=== PATIENT | female | born 1975 | race Hispanic/Latino ===

== ENCOUNTER 2017-11-27 11:18 | Day surgery (SDC) | payer MEDICARE ==
[~2017-11-27 11:18] MED LIST: ACET-66 PO; AMLO10TA2 PO; CARV6.25 PO; CLON0.1T PO; DOCU100C33 PO; GREE1CAP PO; INSU100V3 SQ; LISI40TA4 PO; METO5TAB2 PO; NPH,100V SQ; PANT40TA25 PO; PREG25 PO; RIFA550T PO; SERT25TA5 PO; SEVE800T7 PO; TRAM50TA4 PO
[2017-11-27 12:19] LABS: BASOPHILS % (AUTO) 0.5 % (0.0-5.0); HEMATOCRIT 24.7 % (36-48); MEAN CORPUSCULAR HEMOGLOBIN 29.1 pg (27.0-33.0); MEAN CORPUSCULAR HGB CONC 33.6 g/dL (32.0-36.0); MEAN CORPUSCULAR VOLUME 86.4 fL (79-99); MONOCYTES % (AUTO) 7.7 % (3.0-13.0); NEUTROPHILS % (AUTO) 75.8 % (40.0-77.0); NUCLEATED RED BLOOD CELLS 0.1 % (0.0-0.19); PLATELET COUNT (AUTO) 143 K/uL (130-400); RED BLOOD CELL COUNT(AUTO) 2.86 MIL/uL (4.00-5.50); RED CELL DISTRIBUTION WIDTH 17.7 % (11.0-15.5); WHITE BLOOD COUNT (AUTO) 5.3 K/uL (4.8-10.8)
[2017-11-27 12:29] LABS: INR 1.02 (0.85-1.15); PARTIAL THROMBOPLASTIN TIME 25.9 SEC (26.3-35.5); PROTHROMBIN TIME 10.7 SEC (9.6-11.6)
[2017-11-27 12:37] LABS: POTASSIUM 5.2 mmol/L (3.5-5.1)
[2017-11-27] MEDS ORDERED: ISOVUE-300 100 ML VIAL IV ONE (13:49)
[2017-11-27] MEDS ORDERED: ALTEPLASE 2 MG/2 ML IVCATH ONE (13:53)
[2017-11-27] MEDS ORDERED: LIDOCAINE HCL 2% 20ML ONE (13:55)
[2017-11-27] MEDS ORDERED: HEPARIN SODIUM 1000UNIT/ML 10ML VIAL ONE (13:55)
[2017-11-27] MEDS ORDERED: SODIUM BICARB 50MEQ 50ML VIAL ONE (13:55)
[2017-11-27] MEDS ORDERED: SODIUM CHLORIDE 0.9% 1000ML 1,000 ML IV ONE (14:17)
[2017-11-27] MEDS ORDERED: FENTANYL CITRATE PF 50 MCG/1 ML 2ML VIAL ONE (14:49)
[2017-11-27 15:49] VITALS: BP 180/81
[2017-11-27 16:10] VITALS: BP 181/73
[2017-11-27 16:25] VITALS: BP 179/81
[2017-11-27 16:40] VITALS: BP 174/79
[2017-11-27 16:55] VITALS: BP 174/77
== END 2017-11-27 17:20 | disposition home or self-care (01) ==
LOC: EDH 11:18 → DAH 11:19
PROVIDERS: ATTEND Internal Medicine Nephrology
DX: T82.868A Thrombosis due to vascular prosthetic devices, implants and grafts, initial encounter (principal); E11.9 Type 2 diabetes mellitus without complications; R10.9 Unspecified abdominal pain
CPT/HCPCS: 36415; 36906; 80048; 82948; 85025; 85610; 85730; C1725 ×4; C1769 ×3; C1874; C1894 ×4; J1644 ×2; J2997; J3010; J3490 ×2; J7030; Q9967

== ENCOUNTER 2018-01-05 15:00 | Emergency (ER) | payer MEDICARE ==
[2018-01-05 15:56] LABS: BASOPHILS % (AUTO) 0.5 % (0.0-5.0); EOSINOPHILS % (AUTO) 0.1 % (0.0-8.0); LYMPHOCYTES % (AUTO) 14.1 % (21.0-51.0); MEAN CORPUSCULAR HEMOGLOBIN 31.6 pg (27.0-33.0); MEAN CORPUSCULAR HGB CONC 35.1 g/dL (32.0-36.0); MEAN CORPUSCULAR VOLUME 90.2 fL (79-99); NEUTROPHILS % (AUTO) 78.3 % (40.0-77.0); PLATELET COUNT (AUTO) 186 K/uL (130-400); RED BLOOD CELL COUNT(AUTO) 2.88 MIL/uL (4.00-5.50); RED CELL DISTRIBUTION WIDTH 17.4 % (11.0-15.5); WHITE BLOOD COUNT (AUTO) 7.5 K/uL (4.8-10.8)
[2018-01-05 16:10] LABS: ALBUMIN 3.1 g/dL (3.5-5.0); BILIRUBIN,TOTAL 0.3 mg/dL (0.2-1.0); POTASSIUM 5.2 mmol/L (3.5-5.1); TOTAL PROTEIN, SERUM 7.6 g/dL (6.0-8.3)
[2018-01-05 16:11] LABS: CREATININE 7.9 mg/dL (0.5-1.5)
[2018-01-05 16:19] LABS: PARTIAL THROMBOPLASTIN TIME 26.5 SEC (26.3-35.5); PROTHROMBIN TIME 10.5 SEC (9.6-11.6)
== END 2018-01-05 18:34 | disposition home or self-care (01) ==
LOC: EDH 15:00
DX: R18.8 Other ascites (principal); I12.0 Hypertensive chronic kidney disease with stage 5 chronic kidney disease or end stage renal disease; E11.22 Type 2 diabetes mellitus with diabetic chronic kidney disease; N18.6 End stage renal disease; Z99.2 Dependence on renal dialysis; Z90.49 Acquired absence of other specified parts of digestive tract; Z90.710 Acquired absence of both cervix and uterus; Z88.2 Allergy status to sulfonamides; Z88.0 Allergy status to penicillin; Z88.5 Allergy status to narcotic agent; Z88.6 Allergy status to analgesic agent
CPT/HCPCS: 36415; 49083; 80053; 85025; 85610; 85730

== ENCOUNTER 2018-02-19 10:14 | Inpatient (IN) | payer MEDICARE ==
[~2018-02-19] VITALS: Ht 165.1 cm; Wt 70.9 kg
[2018-02-19] MEDS ORDERED: ONDANSETRON HCL MDV 20ML 2 MG/ML VIAL ONE (10:35)
[2018-02-19 10:51] LABS: BASOPHILS % (AUTO) 0.4 % (0.0-5.0); HEMATOCRIT 30.1 % (36-48); LYMPHOCYTES % (AUTO) 10.6 % (21.0-51.0); MEAN CORPUSCULAR HEMOGLOBIN 31.7 pg (27.0-33.0); MEAN CORPUSCULAR HGB CONC 34.4 g/dL (32.0-36.0); MEAN CORPUSCULAR VOLUME 92.3 fL (79-99); MONOCYTES % (AUTO) 6.3 % (3.0-13.0); NEUTROPHILS % (AUTO) 82.7 % (40.0-77.0); NUCLEATED RED BLOOD CELLS 0.1 % (0.0-0.19); PLATELET COUNT (AUTO) 122 K/uL (130-400); RED BLOOD CELL COUNT(AUTO) 3.26 MIL/uL (4.00-5.50); RED CELL DISTRIBUTION WIDTH 19.6 % (11.0-15.5); WHITE BLOOD COUNT (AUTO) 7.4 K/uL (4.8-10.8)
[2018-02-19] MEDS ORDERED: HYDROMORPHONE 1 MG/1 ML AMP IVP ONE (11:11)
[2018-02-19 11:16] LABS: ALBUMIN 3.6 g/dL (3.5-5.0); BILIRUBIN,TOTAL 0.6 mg/dL (0.2-1.0); TOTAL PROTEIN, SERUM 7.8 g/dL (6.0-8.3)
[2018-02-19 11:27] LABS: POTASSIUM 6.5 mmol/L (3.5-5.1)
[2018-02-19 11:28] LABS: CREATININE 8.1 mg/dL (0.5-1.5)
[2018-02-19] MEDS ORDERED: ALBUTEROL SULFATE 0.083% 2.5 MG/3 ML INH IH ONE (12:17)
[2018-02-19] MEDS ORDERED: CALCIUM GLUCONATE 1 GM/10 ML VIAL IV ONE (12:25)
[2018-02-19] MEDS ORDERED: SODIUM BICARB 50MEQ 50ML VIAL ONE (12:25)
[2018-02-19] MEDS ORDERED: INSULIN HUMULIN R 100 UNIT/ML 3ML ONE (12:26)
[2018-02-19] MEDS ORDERED: DEXTROSE 50%-WATER 50 ML DISP.SYRIN IV ONE (12:27)
[2018-02-19] MEDS ORDERED: SODIUM POLYSTYRENE SULFONATE 15 GM/60 ML ML ONE (12:54)
[2018-02-19 14:29] VITALS: BP 152/84
[2018-02-19 16:15] VITALS: BP 200/108
[2018-02-19] MEDS: INSULIN HUMULIN R 100 UNIT/ML 3ML SQ SCH ×2 (16:30→21:00)
[2018-02-19] MEDS ORDERED: ONDANSETRON HCL MDV 20ML 2 MG/ML VIAL IVP PRN (16:30)
[2018-02-19] MEDS ORDERED: ACETAMINOPHEN 325 MG TAB PO PRN (16:30)
[2018-02-19] MEDS ORDERED: ALBUMIN (HUMAN) 25% 100 ML IV PRN (17:00)
[2018-02-19] MEDS ORDERED: SODIUM CHLORIDE 0.9% 1000ML 1,000 ML IV PRN (17:00)
[2018-02-19] MEDS ORDERED: 0.9% SODIUM CHLORIDE 250 ML IV BAG IV PRN (17:00)
[2018-02-19] MEDS ORDERED: HEPARIN SODIUM 5000UNIT/ML 1ML VIAL IJ PRN (17:00)
[2018-02-19] MEDS: TRAMADOL HCL 50 MG TABLET PO PRN (17:22)
[2018-02-19 19:23] VITALS: BP 223/131
[2018-02-19] MEDS ORDERED: TRAMADOL HCL 50 MG TABLET PO ONE (21:00)
[2018-02-19] MEDS: HYDRALAZINE HCL 20 MG/ML VIAL IV PRN (22:12)
[2018-02-19] MEDS: ONDANSETRON HCL MDV 20ML 2 MG/ML VIAL IVP PRN (22:12)
[2018-02-19 23:21] VITALS: BP 211/101
[2018-02-20] MEDS: ONDANSETRON HCL MDV 20ML 2 MG/ML VIAL IVP PRN ×3 (02:11→10:59)
[2018-02-20] MEDS: HYDRALAZINE HCL 20 MG/ML VIAL IV PRN ×2 (02:17→06:15)
[2018-02-20] MEDS: TRAMADOL HCL 50 MG TABLET PO PRN (03:46)
[2018-02-20 03:55] LABS: BASOPHILS % (AUTO) 0.5 % (0.0-5.0); HEMATOCRIT 34.3 % (36-48); LYMPHOCYTES % (AUTO) 5.1 % (21.0-51.0); MEAN CORPUSCULAR HEMOGLOBIN 30.7 pg (27.0-33.0); MEAN CORPUSCULAR HGB CONC 33.8 g/dL (32.0-36.0); MEAN CORPUSCULAR VOLUME 90.9 fL (79-99); MONOCYTES % (AUTO) 2.8 % (3.0-13.0); NEUTROPHILS % (AUTO) 91.6 % (40.0-77.0); NUCLEATED RED BLOOD CELLS 0.1 % (0.0-0.19); PLATELET COUNT (AUTO) 169 K/uL (130-400); RED BLOOD CELL COUNT(AUTO) 3.77 MIL/uL (4.00-5.50); WHITE BLOOD COUNT (AUTO) 8.8 K/uL (4.8-10.8)
[2018-02-20 04:05] LABS: INR 1.08 (0.85-1.15); PARTIAL THROMBOPLASTIN TIME 24.3 SEC (26.3-35.5); PROTHROMBIN TIME 11.3 SEC (9.6-11.6)
[2018-02-20 04:08] LABS: ALBUMIN 3.5 g/dL (3.5-5.0); BILIRUBIN,DIRECT 0.1 mg/dL (0.0-0.3); BILIRUBIN,TOTAL 0.9 mg/dL (0.2-1.0); CREATININE 6.3 mg/dL (0.5-1.5); POTASSIUM 5.7 mmol/L (3.5-5.1); TOTAL PROTEIN, SERUM 8.3 g/dL (6.0-8.3)
[2018-02-20 04:22] VITALS: BP 185/81
[2018-02-20] MEDS: INSULIN HUMULIN R 100 UNIT/ML 3ML SQ SCH ×4 (06:22→20:30)
[2018-02-20 07:00] VITALS: BP 180/93
[2018-02-20] MEDS: PANTOPRAZOLE SODIUM 40 MG TABLET.DR PO SCH (07:30)
[2018-02-20] MEDS: LIDOCAINE HCL 1% 20 ML VIAL INJ SCH ×2 (09:00→09:15)
[2018-02-20] MEDS ORDERED: ACETAMINOPHEN EXTRA STRENGTH 500 MG TABLET PO PRN (09:15)
[2018-02-20] MEDS ORDERED: DOCUSATE SODIUM 100 MG CAP PO PRN (09:15)
[2018-02-20] MEDS ORDERED: TRAMADOL HCL 50 MG TABLET PO PRN (09:15)
[2018-02-20] MEDS: METOCLOPRAMIDE 5 MG TABLET PO SCH ×2 (10:58→16:16)
[2018-02-20] MEDS: TRAMADOL HCL 50 MG TABLET PO SCH ×3 (10:58→22:18)
[2018-02-20] MEDS: CLONIDINE HCL 0.1 MG TABLET PO SCH ×2 (10:59→16:16)
[2018-02-20 11:00] VITALS: BP 191/96
[2018-02-20] MEDS: SEVELAMER HCL 800 MG TABLET PO SCH ×2 (12:00→16:16)
[2018-02-20] MEDS ORDERED: DIPHENHYDRAMINE HCL 25 MG CAPSULE PO PRN (13:30)
[2018-02-20] MEDS ORDERED: HYDROMORPHONE HCL 0.5 MG/0.5 ML ML IVP PRN (13:30)
[2018-02-20 16:00] VITALS: BP 200/95
[2018-02-20 19:16] VITALS: BP 190/97
[2018-02-20] MEDS: AMLODIPINE BESYLATE 5 MG TAB PO SCH (20:21)
[2018-02-20] MEDS: CARVEDILOL 6.25 MG TABLET PO SCH (20:21)
[2018-02-20] MEDS: SERTRALINE HCL 50 MG TABLET PO SCH (20:21)
[2018-02-20] MEDS: LISINOPRIL 40 MG TABLET PO SCH (20:22)
[2018-02-20] MEDS ORDERED: SODIUM POLYSTYRENE SULFONATE 15 GM/60 ML ML PO SCH (21:00)
[2018-02-20 23:04] VITALS: BP 136/76
[2018-02-21] VITALS (8 sets, daily range): BP systolic 89–189; BP diastolic 50–91
[2018-02-21] MEDS: CLONIDINE HCL 0.1 MG TABLET PO SCH ×3 (00:55→16:50)
[2018-02-21] MEDS: TRAMADOL HCL 50 MG TABLET PO SCH ×4 (03:13→20:53)
[2018-02-21 03:40] LABS: HEMATOCRIT 31.7 % (36-48); MEAN CORPUSCULAR HEMOGLOBIN 31.6 pg (27.0-33.0); MEAN CORPUSCULAR HGB CONC 33.9 g/dL (32.0-36.0); MEAN CORPUSCULAR VOLUME 93.1 fL (79-99); NUCLEATED RED BLOOD CELLS 0.1 % (0.0-0.19); PLATELET COUNT (AUTO) 120 K/uL (130-400); RED CELL DISTRIBUTION WIDTH 20.4 % (11.0-15.5); WHITE BLOOD COUNT (AUTO) 7.8 K/uL (4.8-10.8)
[2018-02-21 04:00] LABS: CREATININE 8.5 mg/dL (0.5-1.5)
[2018-02-21] MEDS: INSULIN HUMULIN R 100 UNIT/ML 3ML SQ SCH ×4 (05:56→20:58)
[2018-02-21] MEDS: PANTOPRAZOLE SODIUM 40 MG TABLET.DR PO SCH ×2 (06:42)
[2018-02-21] MEDS: SEVELAMER HCL 800 MG TABLET PO SCH ×3 (08:00→16:49)
[2018-02-21] MEDS: LIDOCAINE HCL 1% 20 ML VIAL INJ SCH ×2 (09:00→09:15)
[2018-02-21] MEDS: CARVEDILOL 6.25 MG TABLET PO SCH ×2 (09:34→20:52)
[2018-02-21] MEDS: METOCLOPRAMIDE 5 MG TABLET PO SCH ×3 (09:34→16:49)
[2018-02-21] MEDS: AMLODIPINE BESYLATE 5 MG TAB PO SCH (20:52)
[2018-02-21] MEDS: LISINOPRIL 40 MG TABLET PO SCH (20:52)
[2018-02-21] MEDS: SERTRALINE HCL 50 MG TABLET PO SCH (20:53)
[2018-02-22] MEDS: CLONIDINE HCL 0.1 MG TABLET PO SCH ×2 (00:27→07:25)
[2018-02-22 03:11] VITALS: BP 139/73
[2018-02-22] MEDS: TRAMADOL HCL 50 MG TABLET PO SCH ×2 (03:28→07:25)
[2018-02-22 04:03] LABS: HEMATOCRIT 32.4 % (36-48); MEAN CORPUSCULAR HEMOGLOBIN 30.5 pg (27.0-33.0); MEAN CORPUSCULAR VOLUME 92.3 fL (79-99); PLATELET COUNT (AUTO) 111 K/uL (130-400); RED BLOOD CELL COUNT(AUTO) 3.51 MIL/uL (4.00-5.50); RED CELL DISTRIBUTION WIDTH 19.4 % (11.0-15.5); WHITE BLOOD COUNT (AUTO) 6.4 K/uL (4.8-10.8)
[2018-02-22 04:34] LABS: CREATININE 6.5 mg/dL (0.5-1.5); PHOSPHORUS 6.2 mg/dL (2.5-4.9); POTASSIUM 3.7 mmol/L (3.5-5.1)
[2018-02-22] MEDS: INSULIN HUMULIN R 100 UNIT/ML 3ML SQ SCH ×2 (05:41→11:06)
[2018-02-22] MEDS: PANTOPRAZOLE SODIUM 40 MG TABLET.DR PO SCH ×2 (06:57)
[2018-02-22] MEDS: METOCLOPRAMIDE 5 MG TABLET PO SCH ×2 (06:58→11:23)
[2018-02-22 07:00] VITALS: BP 171/72
[2018-02-22] MEDS: LIDOCAINE HCL 1% 20 ML VIAL INJ SCH ×2 (07:02)
[2018-02-22] MEDS: CARVEDILOL 6.25 MG TABLET PO SCH (07:25)
[2018-02-22] MEDS: SEVELAMER HCL 800 MG TABLET PO SCH ×2 (07:25→11:23)
[2018-02-22 11:00] VITALS: BP 163/75
== END 2018-02-22 13:00 | disposition home or self-care (01) | DRG 432 ==
LOC: EDH 10:14 → EDHIP 12:10 → 2BH 14:07 → 2DH 02-20 05:07
PROVIDERS: ADMIT Internal Medicine Nephrology; ATTEND Internal Medicine Nephrology
PROC: 5A1D70Z Performance of Urinary Filtration, Intermittent, Less than 6 Hours Per Day (ICD-10-PCS; 2018-02-19)
PROC: 0W9G3ZZ Drainage of Peritoneal Cavity, Percutaneous Approach (ICD-10-PCS; principal; 2018-02-20)
PROC: 5A1D70Z Performance of Urinary Filtration, Intermittent, Less than 6 Hours Per Day (ICD-10-PCS; 2018-02-20)
PROC: 5A1D70Z Performance of Urinary Filtration, Intermittent, Less than 6 Hours Per Day (ICD-10-PCS; 2018-02-21)
DX: K74.60 Unspecified cirrhosis of liver (principal); N18.6 End stage renal disease; E11.21 Type 2 diabetes mellitus with diabetic nephropathy; E11.51 Type 2 diabetes mellitus with diabetic peripheral angiopathy without gangrene; R18.8 Other ascites; I12.0 Hypertensive chronic kidney disease with stage 5 chronic kidney disease or end stage renal disease; E87.5 Hyperkalemia; D64.9 Anemia, unspecified; E11.22 Type 2 diabetes mellitus with diabetic chronic kidney disease; E78.5 Hyperlipidemia, unspecified; E87.70 Fluid overload, unspecified; H17.9 Unspecified corneal scar and opacity; H54.8 Legal blindness, as defined in USA; Z83.3 Family history of diabetes mellitus; Z89.512 Acquired absence of left leg below knee; Z90.710 Acquired absence of both cervix and uterus; Z91.14 Patient's other noncompliance with medication regimen; Z91.19 Patient's noncompliance with other medical treatment and regimen; Z99.2 Dependence on renal dialysis; Z88.5 Allergy status to narcotic agent; Z88.0 Allergy status to penicillin; Z88.2 Allergy status to sulfonamides; Z98.49 Cataract extraction status, unspecified eye
CPT/HCPCS: 36415; 49083; 80048; 80053; 80076; 82150; 82948; 83690; 84100; 84132; 85025; 85027; 85610; 85730; 90935; 93005; 94640; 99291; J0360; J0610; J1170; J1644; J1815; J3490; J7030; J7070; Q0163

== ENCOUNTER 2018-03-06 16:27 | Emergency (ER) | payer MEDICARE ==
[2018-03-06 18:18] LABS: CREATININE 7.6 mg/dL (0.5-1.5)
[2018-03-06 18:22] LABS: INR 1.01 (0.85-1.15); PARTIAL THROMBOPLASTIN TIME 26.6 SEC (26.3-35.5); PROTHROMBIN TIME 10.6 SEC (9.6-11.6)
[2018-03-06] MEDS ORDERED: LIDOCAINE HCL 1% 20 ML VIAL ONE (20:12)
== END 2018-03-06 20:59 | disposition home or self-care (01) ==
LOC: EDH 16:27
DX: R18.8 Other ascites (principal); I12.0 Hypertensive chronic kidney disease with stage 5 chronic kidney disease or end stage renal disease; E11.22 Type 2 diabetes mellitus with diabetic chronic kidney disease; N18.6 End stage renal disease; H54.7 Unspecified visual loss; Z99.2 Dependence on renal dialysis; Z90.710 Acquired absence of both cervix and uterus; Z88.6 Allergy status to analgesic agent; Z88.0 Allergy status to penicillin; Z88.2 Allergy status to sulfonamides; Z98.890 Other specified postprocedural states
CPT/HCPCS: 36415; 49083; 80048; 85610; 85730

== ENCOUNTER 2018-03-24 02:01 | Inpatient (IN) | payer MEDICARE ==
[~2018-03-24] VITALS: Ht 165.1 cm; Wt 79.9 kg
[2018-03-24 02:56] LABS: PARTIAL THROMBOPLASTIN TIME 25.7 SEC (26.3-35.5); PROTHROMBIN TIME 10.5 SEC (9.6-11.6)
[2018-03-24 02:59] LABS: ALBUMIN 2.9 g/dL (3.5-5.0); BILIRUBIN,TOTAL 0.5 mg/dL (0.2-1.0); TOTAL PROTEIN, SERUM 6.8 g/dL (6.0-8.3)
[2018-03-24 03:00] LABS: BASOPHILS % (AUTO) 0.8 % (0.0-5.0); HEMATOCRIT 33.4 % (36-48); LYMPHOCYTES % (AUTO) 12.9 % (21.0-51.0); MEAN CORPUSCULAR HEMOGLOBIN 30.1 pg (27.0-33.0); MEAN CORPUSCULAR HGB CONC 33.1 g/dL (32.0-36.0); MEAN CORPUSCULAR VOLUME 91.1 fL (79-99); MONOCYTES % (AUTO) 10.5 % (3.0-13.0); NEUTROPHILS % (AUTO) 75.8 % (40.0-77.0); PLATELET COUNT (AUTO) 95 K/uL (130-400); RED BLOOD CELL COUNT(AUTO) 3.67 MIL/uL (4.00-5.50); RED CELL DISTRIBUTION WIDTH 19.5 % (11.0-15.5); WHITE BLOOD COUNT (AUTO) 6.4 K/uL (4.8-10.8)
[2018-03-24 03:04] LABS: CREATININE 9.4 mg/dL (0.5-1.5)
[2018-03-24] MEDS ORDERED: CALCIUM GLUCONATE 1 GM/10 ML VIAL IV ONE (03:17)
[2018-03-24] MEDS ORDERED: SODIUM BICARB [NEONATAL] 4.2% 10ML SYG ONE (03:17)
[2018-03-24] MEDS ORDERED: SODIUM POLYSTYRENE SULFONATE 15 GM/60 ML ML ONE ×2 (03:17→10:13)
[2018-03-24] MEDS ORDERED: HYDROCODONE/ACETAMINOPHEN 7.5/325 MG 15 ML UDCUP ONE (03:34)
[2018-03-24] MEDS ORDERED: HYDROCODONE/ACETAMINOPHEN 7.5/325 MG 15 ML UDCUP PO PRN (04:30)
[2018-03-24] MEDS ORDERED: ONDANSETRON HCL MDV 20ML 2 MG/ML VIAL IVP PRN (04:30)
[2018-03-24] MEDS ORDERED: KETOROLAC TROMETHAMINE 15MG/ML IV SCH (04:30)
[2018-03-24] MEDS ORDERED: HYDRALAZINE HCL 20 MG/ML VIAL IV PRN (04:30)
[2018-03-24] MEDS ORDERED: ACETAMINOPHEN 325 MG TAB PO PRN (04:30)
[2018-03-24] MEDS ORDERED: GLUCAGON 1MG KIT 1 MG ML IM PRN (04:30)
[2018-03-24] MEDS ORDERED: DEXTROSE 50%-WATER 50 ML DISP.SYRIN IV PRN (04:30)
[2018-03-24] MEDS ORDERED: HYDROMORPHONE HCL 0.5 MG/0.5 ML ML IVP PRN (05:00)
[2018-03-24] MEDS ORDERED: SERT50TA12 PO (07:29)
[2018-03-24] MEDS ORDERED: CARV25TA PO (07:29)
[2018-03-24] MEDS: INSULIN R PO SS1 SQ SCH ×4 (07:30→21:00)
[2018-03-24 08:04] VITALS: BP 141/65
[2018-03-24] MEDS: FAMOTIDINE 20MG TAB 20 MG TAB PO SCH ×2 (08:12→20:35)
[2018-03-24 08:31] LABS: BASOPHILS % (AUTO) 0.8 % (0.0-5.0); HEMATOCRIT 32.6 % (36-48); MEAN CORPUSCULAR HEMOGLOBIN 30.3 pg (27.0-33.0); MEAN CORPUSCULAR HGB CONC 33.7 g/dL (32.0-36.0); MEAN CORPUSCULAR VOLUME 89.8 fL (79-99); MONOCYTES % (AUTO) 10.2 % (3.0-13.0); PLATELET COUNT (AUTO) 101 K/uL (130-400); RED BLOOD CELL COUNT(AUTO) 3.63 MIL/uL (4.00-5.50); RED CELL DISTRIBUTION WIDTH 19.1 % (11.0-15.5)
[2018-03-24 08:48] LABS: ALBUMIN 2.8 g/dL (3.5-5.0); BILIRUBIN,TOTAL 0.5 mg/dL (0.2-1.0); TOTAL PROTEIN, SERUM 6.6 g/dL (6.0-8.3)
[2018-03-24 08:50] LABS: CREATININE 9.7 mg/dL (0.5-1.5); POTASSIUM 6.4 mmol/L (3.5-5.1)
[2018-03-24] MEDS ORDERED: DEXTROSE 50%-WATER 25 GM/50 ML VIAL IV SCH (10:00)
[2018-03-24] MEDS ORDERED: INSULIN HUMULIN R 100 UNIT/ML 3ML SQ SCH (10:00)
[2018-03-24] MEDS ORDERED: SODIUM POLYSTYRENE SULFONATE 15 GM/60 ML ML PO SCH (10:00)
[2018-03-24 12:04] VITALS: BP 135/67
[2018-03-24] MEDS ORDERED: ALBUMIN (HUMAN) 25% 100 ML IV PRN (14:15)
[2018-03-24] MEDS ORDERED: SODIUM CHLORIDE 0.9% 1000ML 1,000 ML IV PRN (14:15)
[2018-03-24] MEDS ORDERED: 0.9% SODIUM CHLORIDE 250 ML IV BAG IV PRN (14:15)
[2018-03-24 20:00] VITALS: BP 127/32
[2018-03-24] MEDS ORDERED: AMLODIPINE BESYLATE 5 MG TAB PO SCH (21:00)
[2018-03-24] MEDS ORDERED: LISINOPRIL 40 MG TABLET PO SCH (21:00)
[2018-03-24] MEDS ORDERED: TRAMADOL HCL 50 MG TABLET PO PRN (21:00)
[2018-03-24] MEDS: CLONIDINE HCL 0.1 MG TABLET PO SCH (23:59)
[2018-03-25] VITALS: BP 149/53
[2018-03-25 04:00] VITALS: BP 166/73
[2018-03-25 05:12] LABS: HEMATOCRIT 33.7 % (36-48); MEAN CORPUSCULAR HEMOGLOBIN 29.9 pg (27.0-33.0); MEAN CORPUSCULAR HGB CONC 33.5 g/dL (32.0-36.0); MEAN CORPUSCULAR VOLUME 89.2 fL (79-99); NUCLEATED RED BLOOD CELLS 0.2 % (0.0-0.19); PLATELET COUNT (AUTO) 124 K/uL (130-400); RED BLOOD CELL COUNT(AUTO) 3.78 MIL/uL (4.00-5.50); RED CELL DISTRIBUTION WIDTH 19.3 % (11.0-15.5); WHITE BLOOD COUNT (AUTO) 5.4 K/uL (4.8-10.8)
[2018-03-25 05:26] LABS: BASOPHILS % (MANUAL) 1 % (0-2); CREATININE 7.2 mg/dL (0.5-1.5); LYMPHOCYTES % (MANUAL) 31 % (22-44); MAN.DIFF COMMENT-IMPRESSION MANUAL DIFFERENTIAL; MONOCYTES % (MANUAL) 8 % (2-9); POTASSIUM 4.9 mmol/L (3.5-5.1); SEGMENTED NEUTROPHILS % 60 % (40-70)
[2018-03-25 05:27] LABS: PLATELET MORPHOLOGY COMMENT SLIGHTLY DECREASED
[2018-03-25] MEDS: INSULIN R PO SS1 SQ SCH ×2 (05:44→11:18)
[2018-03-25 07:30] VITALS: BP 155/81
[2018-03-25] MEDS ORDERED: ALBUMIN (HUMAN) 25% 200 ML IV SCH (09:30)
[2018-03-25] MEDS: CARVEDILOL 25 MG TABLET PO SCH ×2 (10:01)
[2018-03-25] MEDS: FAMOTIDINE 20MG TAB 20 MG TAB PO SCH (10:02)
[2018-03-25 10:03] VITALS: BP 155/81
[2018-03-25] MEDS: CLONIDINE HCL 0.1 MG TABLET PO SCH (10:03)
[2018-03-25] MEDS ORDERED: LIDOCAINE HCL 1% 20 ML VIAL ONE (11:33)
[2018-03-25 12:03] LABS: SPECIMENTYPE,BODY FLUID ASCITES
[2018-03-25 12:04] LABS: APPEARANCE BODY FLUID CLEAR (CLEAR); COLOR,BODY FLUID YELLOW (LT YELLOW); TOTAL VOLUME,BODY FLUID 7000 mL
[2018-03-25 12:05] LABS: BODY FLUID RBC 90 /cu. mm.; BODY FLUID WBC 87 /cu. mm.
[2018-03-25 12:12] LABS: BF LYMPHOCYTE 1 %; BF MESOTHELIAL 96 %; BF MONOCYTE 3 %
== END 2018-03-25 13:35 | disposition home or self-care (01) | DRG 640 ==
LOC: EDH 02:01 → EDHIP 03:40 → OBSVTOIN 03:40 → 4BH 07:35
PROVIDERS: ADMIT Internal Medicine Nephrology; ATTEND Internal Medicine Nephrology
PROC: 5A1D70Z Performance of Urinary Filtration, Intermittent, Less than 6 Hours Per Day (ICD-10-PCS; 2018-03-24)
PROC: 0W9G3ZZ Drainage of Peritoneal Cavity, Percutaneous Approach (ICD-10-PCS; principal; 2018-03-25)
DX: E87.5 Hyperkalemia (principal); N18.6 End stage renal disease; D69.6 Thrombocytopenia, unspecified; E11.21 Type 2 diabetes mellitus with diabetic nephropathy; I12.0 Hypertensive chronic kidney disease with stage 5 chronic kidney disease or end stage renal disease; E11.22 Type 2 diabetes mellitus with diabetic chronic kidney disease; E11.39 Type 2 diabetes mellitus with other diabetic ophthalmic complication; E11.51 Type 2 diabetes mellitus with diabetic peripheral angiopathy without gangrene; R18.8 Other ascites; D64.9 Anemia, unspecified; E11.65 Type 2 diabetes mellitus with hyperglycemia; E78.5 Hyperlipidemia, unspecified; E87.70 Fluid overload, unspecified; H54.8 Legal blindness, as defined in USA; K76.9 Liver disease, unspecified; Z99.2 Dependence on renal dialysis; Z91.19 Patient's noncompliance with other medical treatment and regimen; Z91.11 Patient's noncompliance with dietary regimen; Z90.710 Acquired absence of both cervix and uterus; Z89.512 Acquired absence of left leg below knee; Z89.421 Acquired absence of other right toe(s); Z87.891 Personal history of nicotine dependence; Z88.1 Allergy status to other antibiotic agents; Z88.0 Allergy status to penicillin; Z88.8 Allergy status to other drugs, medicaments and biological substances; Z83.3 Family history of diabetes mellitus; Z82.49 Family history of ischemic heart disease and other diseases of the circulatory system; Z80.3 Family history of malignant neoplasm of breast; Z80.0 Family history of malignant neoplasm of digestive organs; Z80.1 Family history of malignant neoplasm of trachea, bronchus and lung
CPT/HCPCS: 36415; 49083; 80048; 80053; 82948; 84132; 84484; 85025; 85610; 85730; 87071; 87205; 89051; 90935; 93005; J0610; J1815; J3490; J7070; P9046

== ENCOUNTER 2018-04-20 15:04 | Emergency (ER) | payer MEDICARE ==
[~2018-04-20 15:04] MED LIST changes: +CARV25TA PO; -CARV6.25 PO; -GREE1CAP PO; -PREG25 PO; -RIFA550T PO; -SERT25TA5 PO; +SERT50TA12 PO
[2018-04-20 15:34] LABS: BASOPHILS % (AUTO) 0.7 % (0.0-5.0); LYMPHOCYTES % (AUTO) 10.2 % (21.0-51.0); MEAN CORPUSCULAR HEMOGLOBIN 28.8 pg (27.0-33.0); MEAN CORPUSCULAR HGB CONC 32.6 g/dL (32.0-36.0); MEAN CORPUSCULAR VOLUME 88.4 fL (79-99); MONOCYTES % (AUTO) 7.4 % (3.0-13.0); NEUTROPHILS % (AUTO) 81.7 % (40.0-77.0); PLATELET COUNT (AUTO) 141 K/uL (130-400); RED BLOOD CELL COUNT(AUTO) 3.73 MIL/uL (4.00-5.50); RED CELL DISTRIBUTION WIDTH 19.6 % (11.0-15.5); WHITE BLOOD COUNT (AUTO) 9.6 K/uL (4.8-10.8)
[2018-04-20 15:47] LABS: BILIRUBIN,TOTAL 0.4 mg/dL (0.2-1.0); TOTAL PROTEIN, SERUM 6.8 g/dL (6.0-8.3)
[2018-04-20 15:59] LABS: CREATININE 9.8 mg/dL (0.5-1.5); POTASSIUM 6.1 mmol/L (3.5-5.1)
[2018-04-20 16:05] LABS: PARTIAL THROMBOPLASTIN TIME 26.2 SEC (26.3-35.5); PROTHROMBIN TIME 10.5 SEC (9.6-11.6)
[2018-04-20] MEDS ORDERED: ONDANSETRON HCL 4 MG/2 ML VIAL ONE (16:27)
[2018-04-20] MEDS ORDERED: HYDROMORPHONE HCL 0.5 MG/0.5 ML ML ONE (16:27)
[2018-04-20] MEDS ORDERED: CLINDAMYCIN 300 MG/D5W 50 ML 50 ML IV ONE (18:07)
== END 2018-04-20 20:22 | disposition home or self-care (01) ==
LOC: EDH 15:04
DX: R18.8 Other ascites (principal); L03.311 Cellulitis of abdominal wall; I12.0 Hypertensive chronic kidney disease with stage 5 chronic kidney disease or end stage renal disease; E11.22 Type 2 diabetes mellitus with diabetic chronic kidney disease; N18.6 End stage renal disease; H54.7 Unspecified visual loss; Z88.2 Allergy status to sulfonamides; Z88.0 Allergy status to penicillin; Z88.6 Allergy status to analgesic agent; Z98.890 Other specified postprocedural states; Z99.2 Dependence on renal dialysis; Z90.710 Acquired absence of both cervix and uterus; Z79.4 Long term (current) use of insulin
CPT/HCPCS: 36415; 49083; 80053; 85025; 85610; 85730; 87040 ×2; 96365; 96366; 96375; 99285; J1170; J2405; J3490

== ENCOUNTER → 2018-06-22 | Outpatient (CLI) | payer MEDICARE ==
[~2018-06-22] MED LIST changes: +ALBUMIN (HUMAN) 25% 200 ML IV ONE; -AMLO10TA2 PO; +AMLO10TA6 PO; +HYDR-3421 PO; +PREG25 PO
[2018-06-22 09:33] LABS: BASOPHILS % (AUTO) 1.1 % (0.0-5.0); EOSINOPHILS % (AUTO) 0.2 % (0.0-8.0); HEMATOCRIT 27.9 % (36-48); LYMPHOCYTES % (AUTO) 15.3 % (21.0-51.0); MEAN CORPUSCULAR HEMOGLOBIN 29.8 pg (27.0-33.0); MEAN CORPUSCULAR VOLUME 90.1 fL (79-99); MONOCYTES % (AUTO) 10.5 % (3.0-13.0); NEUTROPHILS % (AUTO) 72.9 % (40.0-77.0); NUCLEATED RED BLOOD CELLS 0.1 % (0.0-0.19); PLATELET COUNT (AUTO) 119 K/uL (130-400); RED CELL DISTRIBUTION WIDTH 18.9 % (11.0-15.5); WHITE BLOOD COUNT (AUTO) 5.5 K/uL (4.8-10.8)
[2018-06-22 09:46] LABS: INR 0.99 (0.85-1.15); PROTHROMBIN TIME 10.4 SEC (9.6-11.6)
[2018-06-22 09:49] LABS: ALBUMIN 2.5 g/dL (3.5-5.0); BILIRUBIN,TOTAL 0.4 mg/dL (0.2-1.0); CREATININE 7.5 mg/dL (0.5-1.5); POTASSIUM 5.7 mmol/L (3.5-5.1); TOTAL PROTEIN, SERUM 6.2 g/dL (6.0-8.3)
[2018-06-22 13:36] LABS: APPEARANCE BODY FLUID CLEAR (CLEAR); BODY FLUID RBC 144 /cu. mm.; BODY FLUID WBC 46 /cu. mm.; COLOR,BODY FLUID YELLOW (LT YELLOW); SPECIMENTYPE,BODY FLUID ASCITES; TOTAL VOLUME,BODY FLUID 6000 mL
[2018-06-22 13:38] LABS: BF LYMPHOCYTE 34 %; BF MESOTHELIAL 57 %; BF MONOCYTE 8 %
== END ==
LOC: RAH 08:09
PROVIDERS: ATTEND Internal Medicine Gastroenterology
DX: R18.8 Other ascites (principal); E78.5 Hyperlipidemia, unspecified; K21.9 Gastro-esophageal reflux disease without esophagitis; F41.9 Anxiety disorder, unspecified; E11.22 Type 2 diabetes mellitus with diabetic chronic kidney disease; N18.6 End stage renal disease; I12.0 Hypertensive chronic kidney disease with stage 5 chronic kidney disease or end stage renal disease; Z79.899 Other long term (current) drug therapy; Z90.49 Acquired absence of other specified parts of digestive tract; Z89.612 Acquired absence of left leg above knee; Z88.8 Allergy status to other drugs, medicaments and biological substances; Z88.2 Allergy status to sulfonamides
CPT/HCPCS: 36415; 49083; 80053; 85025; 85610; 87071; 87205; 88108; 88305; 88341; 88342; 89051; P9046

== ENCOUNTER 2018-08-17 07:50 | Emergency (ER) | payer MEDICARE ==
[~2018-08-17 07:50] MED LIST changes: -ALBUMIN (HUMAN) 25% 200 ML IV ONE
[2018-08-17 08:44] LABS: BASOPHILS % (AUTO) 1.1 % (0.0-5.0); EOSINOPHILS % (AUTO) 0.6 % (0.0-8.0); HEMATOCRIT 28.6 % (36-48); LYMPHOCYTES % (AUTO) 14.2 % (21.0-51.0); MEAN CORPUSCULAR HEMOGLOBIN 27.4 pg (27.0-33.0); MEAN CORPUSCULAR VOLUME 85.8 fL (79-99); MONOCYTES % (AUTO) 9.4 % (3.0-13.0); NEUTROPHILS % (AUTO) 74.7 % (40.0-77.0); PLATELET COUNT (AUTO) 128 K/uL (130-400); RED BLOOD CELL COUNT(AUTO) 3.33 MIL/uL (4.00-5.50); RED CELL DISTRIBUTION WIDTH 19.3 % (11.0-15.5); WHITE BLOOD COUNT (AUTO) 5.5 K/uL (4.8-10.8)
[2018-08-17 08:54] LABS: CREATININE 6.9 mg/dL (0.5-1.5); POTASSIUM 5.2 mmol/L (3.5-5.1)
[2018-08-17 08:58] LABS: ALBUMIN 2.7 g/dL (3.5-5.0); BILIRUBIN,TOTAL 0.6 mg/dL (0.2-1.0); TOTAL PROTEIN, SERUM 7.5 g/dL (6.0-8.3)
[2018-08-17 09:11] LABS: INR 1.02 (0.85-1.15); PARTIAL THROMBOPLASTIN TIME 27.5 SEC (26.3-35.5); PROTHROMBIN TIME 10.7 SEC (9.6-11.6)
[2018-08-17] MEDS ORDERED: ONDANSETRON HCL 4 MG/2 ML VIAL ONE (09:32)
[2018-08-17] MEDS ORDERED: HYDROMORPHONE 1 MG/1 ML AMP ONE (09:32)
[2018-08-17] MEDS ORDERED: LIDOCAINE HCL MPF 1% 5ML VIAL ONE (13:50)
[2018-08-17] MEDS ORDERED: ALBUMIN (HUMAN) 25% 200 ML IV ONE (13:51)
== END 2018-08-17 16:59 | disposition home or self-care (01) ==
LOC: EDH 07:50
DX: R18.8 Other ascites (principal); I12.0 Hypertensive chronic kidney disease with stage 5 chronic kidney disease or end stage renal disease; E10.22 Type 1 diabetes mellitus with diabetic chronic kidney disease; N18.6 End stage renal disease; H54.7 Unspecified visual loss; Z99.2 Dependence on renal dialysis; Z90.710 Acquired absence of both cervix and uterus; Z88.0 Allergy status to penicillin; Z88.2 Allergy status to sulfonamides; Z88.6 Allergy status to analgesic agent; Z88.1 Allergy status to other antibiotic agents; Z98.890 Other specified postprocedural states
CPT/HCPCS: 36415; 49083; 80053; 85025; 85610; 85730; 96374; 96375; 99285; A4215; J1170; J2405; J3490; P9046; 96365

== ENCOUNTER 2018-09-02 07:55 | Emergency (ER) | payer MEDICARE ==
[2018-09-02 08:44] LABS: BASOPHILS % (AUTO) 1.3 % (0.0-5.0); EOSINOPHILS % (AUTO) 0.5 % (0.0-8.0); HEMATOCRIT 31.2 % (36-48); LYMPHOCYTES % (AUTO) 19.3 % (21.0-51.0); MEAN CORPUSCULAR HEMOGLOBIN 28.1 pg (27.0-33.0); MEAN CORPUSCULAR HGB CONC 32.7 g/dL (32.0-36.0); MONOCYTES % (AUTO) 14.3 % (3.0-13.0); NEUTROPHILS % (AUTO) 64.6 % (40.0-77.0); PLATELET COUNT (AUTO) 125 K/uL (130-400); RED BLOOD CELL COUNT(AUTO) 3.63 MIL/uL (4.00-5.50); RED CELL DISTRIBUTION WIDTH 18.6 % (11.0-15.5); WHITE BLOOD COUNT (AUTO) 4.5 K/uL (4.8-10.8)
[2018-09-02 08:51] LABS: CREATININE 6.2 mg/dL (0.5-1.5); POTASSIUM 4.9 mmol/L (3.5-5.1)
[2018-09-02 08:57] LABS: ALBUMIN 2.8 g/dL (3.5-5.0); BILIRUBIN,TOTAL 0.5 mg/dL (0.2-1.0); TOTAL PROTEIN, SERUM 7.2 g/dL (6.0-8.3)
[2018-09-02 08:59] LABS: INR 1.01 (0.85-1.15); PARTIAL THROMBOPLASTIN TIME 28.5 SEC (26.3-35.5); PROTHROMBIN TIME 10.6 SEC (9.6-11.6)
[2018-09-02] MEDS ORDERED: LIDOCAINE HCL 1% 20 ML VIAL ONE (12:44)
== END 2018-09-02 12:30 | disposition home or self-care (01) ==
LOC: EDH 07:55
DX: R18.8 Other ascites (principal); E11.9 Type 2 diabetes mellitus without complications; I10 Essential (primary) hypertension; K74.60 Unspecified cirrhosis of liver; H54.7 Unspecified visual loss; Z89.421 Acquired absence of other right toe(s); Z99.2 Dependence on renal dialysis; Z88.1 Allergy status to other antibiotic agents; Z88.6 Allergy status to analgesic agent; Z88.5 Allergy status to narcotic agent; Z88.2 Allergy status to sulfonamides; Z88.0 Allergy status to penicillin
CPT/HCPCS: 36415; 49083; 80053; 85025; 85610; 85730; 99285; A4215

== ENCOUNTER 2019-02-24 08:51 | Emergency (ER) | payer MEDICARE ==
[~2019-02-24 08:51] MED LIST changes: -ACET-66 PO; -AMLO10TA6 PO; +AMLO10TA7 PO; +AMMO385C4 TP; +BENZ-51 PO; -DOCU100C33 PO; -HYDR-3421 PO; +LEVO250T59 PO; -LISI40TA4 PO; -SERT50TA12 PO
[2019-02-24 09:27] LABS: BASOPHILS % (AUTO) 1.4 % (0.0-5.0); EOSINOPHILS % (AUTO) 0.3 % (0.0-8.0); HEMATOCRIT 31.1 % (36-48); LYMPHOCYTES % (AUTO) 14.3 % (21.0-51.0); MEAN CORPUSCULAR HEMOGLOBIN 30.3 pg (27.0-33.0); MEAN CORPUSCULAR HGB CONC 32.9 g/dL (32.0-36.0); MEAN CORPUSCULAR VOLUME 92.1 fL (79-99); NUCLEATED RED BLOOD CELLS 0.1 % (0.0-0.19); PLATELET COUNT (AUTO) 99 K/uL (130-400); RED BLOOD CELL COUNT(AUTO) 3.38 MIL/uL (4.00-5.50); RED CELL DISTRIBUTION WIDTH 19.8 % (11.0-15.5); WHITE BLOOD COUNT (AUTO) 4.9 K/uL (4.8-10.8)
[2019-02-24 09:32] LABS: POTASSIUM 5.1 mmol/L (3.5-5.1)
[2019-02-24 09:37] LABS: ALBUMIN 2.8 g/dL (3.5-5.0); BILIRUBIN,TOTAL 0.6 mg/dL (0.2-1.0); TOTAL PROTEIN, SERUM 6.9 g/dL (6.0-8.3)
[2019-02-24 09:41] LABS: INR 1.02 (0.85-1.15); PARTIAL THROMBOPLASTIN TIME 29.2 SEC (26.3-35.5); PROTHROMBIN TIME 10.7 SEC (9.6-11.6)
== END 2019-02-24 10:18 | disposition home or self-care (01) ==
LOC: EDH 08:51
DX: R18.8 Other ascites (principal); I12.0 Hypertensive chronic kidney disease with stage 5 chronic kidney disease or end stage renal disease; E11.22 Type 2 diabetes mellitus with diabetic chronic kidney disease; N18.6 End stage renal disease; Z79.4 Long term (current) use of insulin; Z99.2 Dependence on renal dialysis; Z90.710 Acquired absence of both cervix and uterus; Z88.0 Allergy status to penicillin; Z88.1 Allergy status to other antibiotic agents; Z88.2 Allergy status to sulfonamides; Z88.5 Allergy status to narcotic agent; Z88.6 Allergy status to analgesic agent
CPT/HCPCS: 36415; 80053; 85025; 85610; 85730

== ENCOUNTER 2019-07-23 14:38 | Emergency (ER) | payer MEDICARE ==
[~2019-07-23 14:38] MED LIST changes: +ACET-2521 PO; -BENZ-51 PO; -LEVO250T59 PO; +SENN-197 PO
== END 2019-07-23 16:53 | disposition home or self-care (01) ==
LOC: EDH 14:38
DX: S90.921A Unspecified superficial injury of right foot, initial encounter (principal); I12.0 Hypertensive chronic kidney disease with stage 5 chronic kidney disease or end stage renal disease; E11.22 Type 2 diabetes mellitus with diabetic chronic kidney disease; N18.6 End stage renal disease; Z99.2 Dependence on renal dialysis; Z79.4 Long term (current) use of insulin; Z88.0 Allergy status to penicillin; Z88.1 Allergy status to other antibiotic agents; Z88.2 Allergy status to sulfonamides; Z88.5 Allergy status to narcotic agent; Z88.6 Allergy status to analgesic agent; Z90.710 Acquired absence of both cervix and uterus; X58.XXXA Exposure to other specified factors, initial encounter; Y93.89 Activity, other specified; Y92.89 Other specified places as the place of occurrence of the external cause; Y99.8 Other external cause status

== ENCOUNTER 2019-09-10 05:48 | Day surgery (SDC) | payer MEDICARE ==
[~2019-09-10] VITALS: Ht 165.1 cm; Wt 90.2 kg
[2019-09-10] VITALS (7 sets, daily range): BP systolic 106–155; BP diastolic 53–72
[~2019-09-10 05:48] MED LIST changes: -AMMO385C4 TP; -METO5TAB2 PO; -SENN-197 PO; +SODIUM CHLORIDE 0.9% 1000ML 1,000 ML IV ONE
[2019-09-10] MEDS ORDERED: LIDOCAINE HCL 1% 20 ML VIAL ONE (06:34)
[2019-09-10] MEDS ORDERED: PROPOFOL 10 MG/ML 20ML VIAL IV ONE (06:34)
[2019-09-10 06:47] LABS: BASOPHILS % (AUTO) 0.9 % (0.0-5.0); EOSINOPHILS % (AUTO) 0.4 % (0.0-8.0); HEMATOCRIT 36.8 % (36-48); LYMPHOCYTES % (AUTO) 15.2 % (21.0-51.0); MEAN CORPUSCULAR HGB CONC 31.5 g/dL (32.0-36.0); MEAN CORPUSCULAR VOLUME 88.8 fL (79-99); MONOCYTES % (AUTO) 9.6 % (3.0-13.0); NEUTROPHILS % (AUTO) 73.9 % (40.0-77.0); NUCLEATED RED BLOOD CELLS 0.1 % (0.0-0.19); PLATELET COUNT (AUTO) 131 K/uL (130-400); RED BLOOD CELL COUNT(AUTO) 4.14 MIL/uL (4.00-5.50); RED CELL DISTRIBUTION WIDTH 17.9 % (11.0-15.5); WHITE BLOOD COUNT (AUTO) 5.3 K/uL (4.8-10.8)
[2019-09-10 06:59] LABS: INR 1.03 (0.85-1.15); PROTHROMBIN TIME 10.8 SEC (9.6-11.6)
--- NOTE | 2019-09-10 08:20 | NUR ---
Update Patient's father went to register patient for upcoming colonoscopy on Friday09/13/19.
== END 2019-09-10 09:06 | disposition home or self-care (01) ==
LOC: ENDO 05:48 → DAH 05:48 → ENDO 09:06
PROVIDERS: ATTEND Internal Medicine
DX: R19.4 Change in bowel habit (principal); K29.50 Unspecified chronic gastritis without bleeding; K31.7 Polyp of stomach and duodenum; K74.60 Unspecified cirrhosis of liver; E78.5 Hyperlipidemia, unspecified; K21.9 Gastro-esophageal reflux disease without esophagitis; F41.9 Anxiety disorder, unspecified; N18.6 End stage renal disease; I12.0 Hypertensive chronic kidney disease with stage 5 chronic kidney disease or end stage renal disease; E11.22 Type 2 diabetes mellitus with diabetic chronic kidney disease; H54.7 Unspecified visual loss; R18.8 Other ascites; Z79.899 Other long term (current) drug therapy; Z90.49 Acquired absence of other specified parts of digestive tract; Z89.612 Acquired absence of left leg above knee; Z80.0 Family history of malignant neoplasm of digestive organs; Z88.0 Allergy status to penicillin; Z88.5 Allergy status to narcotic agent; Z88.2 Allergy status to sulfonamides; Z88.8 Allergy status to other drugs, medicaments and biological substances
CPT/HCPCS: 36415; 43239; 45378; 82948 ×2; 84132; 85025; 85610; 88305; A4215; A4221; A4222; A4223; A4606; A4620; A4663; J2704; J7030

== ENCOUNTER 2019-09-13 05:39 | Day surgery (SDC) | payer MEDICARE ==
[~2019-09-13] VITALS: Ht 165.1 cm; Wt 90.0 kg
[2019-09-13] VITALS (8 sets, daily range): BP systolic 104–129; BP diastolic 55–67
[~2019-09-13 05:39] MED LIST changes: -SODIUM CHLORIDE 0.9% 1000ML 1,000 ML IV ONE
[2019-09-13] MEDS ORDERED: SODIUM CHLORIDE 0.9% 1000ML 1,000 ML IV ONE (07:20)
[2019-09-13] MEDS ORDERED: PROPOFOL 10 MG/ML 20ML VIAL IV ONE (07:22)
[2019-09-13] MEDS ORDERED: LIDOCAINE HCL 1% 20 ML VIAL ONE (07:23)
[2019-09-13] MEDS ORDERED: EPINEPHRINE 1 MG/ML AMPULE ONE (07:56)
== END 2019-09-13 08:55 | disposition home or self-care (01) ==
LOC: DAH 05:39 → ENDO 05:39
PROVIDERS: ATTEND Internal Medicine
DX: R19.4 Change in bowel habit (principal); D12.2 Benign neoplasm of ascending colon; K64.0 First degree hemorrhoids; K21.9 Gastro-esophageal reflux disease without esophagitis; E11.22 Type 2 diabetes mellitus with diabetic chronic kidney disease; I12.0 Hypertensive chronic kidney disease with stage 5 chronic kidney disease or end stage renal disease; N18.6 End stage renal disease; F41.9 Anxiety disorder, unspecified; H54.7 Unspecified visual loss; E78.5 Hyperlipidemia, unspecified; K74.60 Unspecified cirrhosis of liver; R18.8 Other ascites; Z79.899 Other long term (current) drug therapy; Z90.49 Acquired absence of other specified parts of digestive tract; Z99.2 Dependence on renal dialysis; Z88.5 Allergy status to narcotic agent; Z88.0 Allergy status to penicillin; Z88.8 Allergy status to other drugs, medicaments and biological substances; Z89.612 Acquired absence of left leg above knee
CPT/HCPCS: 36415; 45380; 45381; 45385; 82948; 84132; 88305; A4215; A4221; A4222; A4223; A4606; A4615; A4649; A4663; J0171; J2704; J7030

== ENCOUNTER 2019-10-27 03:38 | Emergency (ER) | payer MEDICARE ==
[2019-10-27] MEDS ORDERED: HYDROMORPHONE 1 MG/1 ML AMP ONE (04:53)
[2019-10-27 05:32] LABS: BASOPHILS % (AUTO) 0.9 % (0.0-5.0); EOSINOPHILS % (AUTO) 0.7 % (0.0-8.0); HEMATOCRIT 31.2 % (36-48); LYMPHOCYTES % (AUTO) 13.9 % (21.0-51.0); MEAN CORPUSCULAR HEMOGLOBIN 27.9 pg (27.0-33.0); MEAN CORPUSCULAR HGB CONC 32.1 g/dL (32.0-36.0); MEAN CORPUSCULAR VOLUME 86.9 fL (79-99); MONOCYTES % (AUTO) 7.7 % (3.0-13.0); NEUTROPHILS % (AUTO) 75.8 % (40.0-77.0); PLATELET COUNT (AUTO) 119 K/uL (130-400); RED BLOOD CELL COUNT(AUTO) 3.59 MIL/uL (4.00-5.50); RED CELL DISTRIBUTION WIDTH 16.2 % (11.0-15.5); WHITE BLOOD COUNT (AUTO) 6.7 K/uL (4.8-10.8)
[2019-10-27 05:47] LABS: BILIRUBIN,TOTAL 0.7 mg/dL (0.2-1.0); POTASSIUM 4.9 mmol/L (3.5-5.1)
[2019-10-27 05:57] LABS: CREATININE 8.5 mg/dL (0.5-1.5)
[2019-10-27 08:02] LABS: ERYTHROCYTE SEDIMENTATION RATE 23 MM/HR (0-20)
== END 2019-10-27 07:17 | disposition home or self-care (01) ==
LOC: EDH 03:38
DX: G57.91 Unspecified mononeuropathy of right lower limb (principal); L97.919 Non-pressure chronic ulcer of unspecified part of right lower leg with unspecified severity; E10.622 Type 1 diabetes mellitus with other skin ulcer; E10.22 Type 1 diabetes mellitus with diabetic chronic kidney disease; I12.0 Hypertensive chronic kidney disease with stage 5 chronic kidney disease or end stage renal disease; N18.6 End stage renal disease; Z88.0 Allergy status to penicillin; Z88.6 Allergy status to analgesic agent; Z88.1 Allergy status to other antibiotic agents; Z88.2 Allergy status to sulfonamides; Z90.710 Acquired absence of both cervix and uterus; Z98.890 Other specified postprocedural states
CPT/HCPCS: 36415; 80053; 85025; 85651; 87040 ×2; 93971; 96372; 99285; J1170

== ENCOUNTER 2020-09-09 11:28 | Inpatient (IN) | payer MEDICARE ==
[~2020-09-09] VITALS: Ht 165.1 cm; Wt 99.2 kg
[~2020-09-09 11:28] MED LIST changes: +AMLO-258 PO; -AMLO10TA7 PO; -PANT40TA25 PO; +PANT40TA54 PO
[2020-09-09 11:53] LABS: BASOPHILS % (AUTO) 0.8 % (0.0-5.0); EOSINOPHILS % (AUTO) 0.4 % (0.0-8.0); HEMATOCRIT 32.3 % (36-48); LYMPHOCYTES % (AUTO) 13.6 % (21.0-51.0); MEAN CORPUSCULAR HEMOGLOBIN 31.8 pg (27.0-33.0); MEAN CORPUSCULAR HGB CONC 32.8 g/dL (32.0-36.0); NEUTROPHILS % (AUTO) 73.4 % (40.0-77.0); PLATELET COUNT (AUTO) 104 K/uL (130-400); RED BLOOD CELL COUNT(AUTO) 3.33 MIL/uL (4.00-5.50); RED CELL DISTRIBUTION WIDTH 15.9 % (11.0-15.5); WHITE BLOOD COUNT (AUTO) 5.2 K/uL (4.8-10.8)
[2020-09-09 12:00] LABS: INR 0.94 (0.85-1.15); PARTIAL THROMBOPLASTIN TIME 26.2 SEC (26.3-35.5); PROTHROMBIN TIME 10.2 SEC (9.6-11.6)
[2020-09-09 12:03] LABS: ALBUMIN 3.1 g/dL (3.5-5.0); BILIRUBIN,TOTAL 0.7 mg/dL (0.2-1.0); POTASSIUM 4.4 mmol/L (3.5-5.1)
[2020-09-09 12:07] LABS: CREATININE 8.4 mg/dL (0.5-1.5)
[2020-09-09] MEDS ORDERED: DEXTROSE 50%-WATER 50 ML DISP.SYRIN IV ONE (14:20)
[2020-09-09 16:30] VITALS: BP 136/63
[2020-09-09] MEDS ORDERED: ACETAMINOPHEN 325 MG TAB PO PRN ×2 (17:15)
[2020-09-09] MEDS ORDERED: MORPHINE SULFATE 2 MG/ML 1ML SYG IV PRN (17:15)
[2020-09-09] MEDS ORDERED: ONDANSETRON HCL 4 MG/2 ML VIAL IV PRN (17:15)
[2020-09-09 17:29] LABS: HEMOGLOBIN A1C 8.3 % (4.0-6.0)
--- NOTE | 2020-09-09 18:50 | NUR ---
VISION LOSS: LEGALLY BLIND Addendum: 09/09/20 at 1923 by KIA SCOTT RN Amended: Links added.
[2020-09-09] MEDS ORDERED: FOLI0.8T43 PO (19:11)
[2020-09-09] MEDS ORDERED: DIPH25TA51 PO (19:11)
[2020-09-09] MEDS ORDERED: METO5TAB2 PO (19:11)
[2020-09-09 19:38] VITALS: BP 136/63
--- NOTE | 2020-09-09 20:15 | NUR ---
CALLED AND AWARE OF BLOOD SUGAR 343 AND PENDING DIALYSIS. NEW ORDERS RECEIVED AND CARRIED OUT. DIALYSIS NURSE AWARE OF PENDING DIALYSIS FOR Friday09/10/20. CONSENT SIGNED BY PATIENT FOR HEMODIALYSIS. NO QUESTIONS OR CONCERNS AT THIS TIME. VITALS STABLE. AFEBRILE. FIANCE AT BEDSIDE. FALL PRECAUTIONS IN PLACE DE TO LEGALLY BLIND AND POOR SAFETY AWARENESS. CALL LIGHT WITHIN REACH. WILL CONTINUE TO BE OBSERVED. Addendum: 09/09/20 at 8378 by NERIS BROWNING RN RN Amended: Links added.
[2020-09-09] MEDS ORDERED: GLUCAGON 1MG KIT 1 MG ML IM PRN (20:30)
[2020-09-09] MEDS ORDERED: DEXTROSE 50%-WATER 50 ML DISP.SYRIN IV PRN (20:30)
[2020-09-09] MEDS: INSULIN HUMULIN R 100 UNIT/ML 3ML SQ SCH (21:04)
[2020-09-09] MEDS ORDERED: DIPHENHYDRAMINE HCL 25 MG CAPSULE PO PRN (23:30)
[2020-09-09] MEDS ORDERED: CLONIDINE HCL 0.1 MG TABLET PO PRN (23:30)
[2020-09-09 23:50] VITALS: BP 148/79
[2020-09-10] MEDS: TRAMADOL HCL 50 MG TABLET PO PRN ×2 (01:40→20:13)
[2020-09-10 04:00] VITALS: BP 133/75
[2020-09-10 05:29] LABS: BASOPHILS % (AUTO) 0.5 % (0.0-5.0); EOSINOPHILS % (AUTO) 0.3 % (0.0-8.0); HEMATOCRIT 32.2 % (36-48); LYMPHOCYTES % (AUTO) 10.5 % (21.0-51.0); MEAN CORPUSCULAR HEMOGLOBIN 31.2 pg (27.0-33.0); MEAN CORPUSCULAR HGB CONC 32.3 g/dL (32.0-36.0); MEAN CORPUSCULAR VOLUME 96.7 fL (79-99); NEUTROPHILS % (AUTO) 79.9 % (40.0-77.0); PLATELET COUNT (AUTO) 91 K/uL (130-400); RED BLOOD CELL COUNT(AUTO) 3.33 MIL/uL (4.00-5.50); WHITE BLOOD COUNT (AUTO) 5.9 K/uL (4.8-10.8)
[2020-09-10 05:51] LABS: ALBUMIN 2.9 g/dL (3.5-5.0); BILIRUBIN,TOTAL 0.7 mg/dL (0.2-1.0); PHOSPHORUS 6.8 mg/dL (2.5-4.9); TOTAL PROTEIN, SERUM 7.1 g/dL (6.0-8.3)
[2020-09-10 06:01] LABS: CREATININE 10.3 mg/dL (0.5-1.5)
[2020-09-10] MEDS: METOCLOPRAMIDE 5 MG TABLET PO SCH ×3 (07:30→17:00)
[2020-09-10] MEDS: PANTOPRAZOLE SODIUM 40 MG TABLET.DR PO SCH (07:30)
[2020-09-10] MEDS: INSULIN HUMULIN R 100 UNIT/ML 3ML SQ SCH ×3 (07:30→17:47)
[2020-09-10 07:57] VITALS: BP 134/72
[2020-09-10] MEDS: SEVELAMER HCL 800 MG TABLET PO SCH ×3 (08:00→17:00)
[2020-09-10] MEDS: FAMOTIDINE/PF 20 MG/2 ML VIAL IV SCH (08:22)
[2020-09-10] MEDS: PREGABALIN 25 MG CAP PO SCH ×2 (08:22→20:12)
[2020-09-10] MEDS: Vitamin B Complex/Vit C/Folic Acid PO SCH (08:22)
[2020-09-10] MEDS: CARVEDILOL 25 MG TABLET PO SCH ×2 (08:22→20:12)
[2020-09-10] MEDS ORDERED: ENOXAPARIN SODIUM 30 MG/0.3 ML SQ SCH (09:00)
[2020-09-10] MEDS ORDERED: GLUCAGON 1MG KIT 1 MG ML IM PRN (10:15)
[2020-09-10] MEDS ORDERED: ACETAMINOPHEN EXTENDED RELEASE 650 MG TABLET PO PRN (10:15)
[2020-09-10] MEDS ORDERED: DEXTROSE 50%-WATER 50 ML DISP.SYRIN IV PRN (10:15)
[2020-09-10 11:18] VITALS: BP 118/59
--- NOTE | 2020-09-10 11:37 | NUR ---
cm note met with patient and states resides at home with father, pt is blind, s/p L BKA uses prosthesis, able use walker, and wc for long distances. attends [facility]. father and fiancee transport. no other dme, pt has a provider 31hrs per week, and [employer] in place to wound to rt leg. dc plan is back home at [place]. [facility] no dc needs. Addendum: 09/10/20 at 1141 by NAJMA EVERETT CM Amended: Links added.
--- NOTE | 2020-09-10 13:55 | NUR ---
DR CINTRON ROUNDS ORDERS RECEIVED I&O , DAILY WT, RENAL DIALYSIS , CBC,CMP, PHOS , A1C , AND DIETARY CONSULT, ORDERS PLACED
[2020-09-10 13:56] LABS: CREATININE 6.6 mg/dL (0.5-1.5); POTASSIUM 4.2 mmol/L (3.5-5.1)
[2020-09-10 16:31] VITALS: BP 131/67
[2020-09-10] MEDS: INSULIN LISPRO 100 UNIT/ML 3ML SQ SCH ×2 (17:49→20:13)
[2020-09-10 20:08] VITALS: BP 138/67
[2020-09-10] MEDS ORDERED: AMLODIPINE BESYLATE 5 MG TAB PO SCH (21:00)
[2020-09-10] MEDS ORDERED: INSULIN GLARGINE 100 UNITS/ML 10 ML VIAL SQ SCH (21:00)
[2020-09-10 23:49] VITALS: BP 117/61
[2020-09-11 03:42] VITALS: BP 132/61
[2020-09-11 05:19] LABS: BASOPHILS % (AUTO) 0.8 % (0.0-5.0); EOSINOPHILS % (AUTO) 0.2 % (0.0-8.0); HEMATOCRIT 30.9 % (36-48); LYMPHOCYTES % (AUTO) 12.9 % (21.0-51.0); MEAN CORPUSCULAR HEMOGLOBIN 31.5 pg (27.0-33.0); MEAN CORPUSCULAR HGB CONC 32.7 g/dL (32.0-36.0); MEAN CORPUSCULAR VOLUME 96.3 fL (79-99); MONOCYTES % (AUTO) 10.6 % (3.0-13.0); NEUTROPHILS % (AUTO) 74.5 % (40.0-77.0); PLATELET COUNT (AUTO) 76 K/uL (130-400); RED BLOOD CELL COUNT(AUTO) 3.21 MIL/uL (4.00-5.50); RED CELL DISTRIBUTION WIDTH 15.9 % (11.0-15.5)
[2020-09-11 05:52] LABS: HEMOGLOBIN A1C 8.6 % (4.0-6.0)
[2020-09-11 06:13] LABS: ALBUMIN 2.9 g/dL (3.5-5.0); BILIRUBIN,TOTAL 0.7 mg/dL (0.2-1.0); PHOSPHORUS 6.5 mg/dL (2.5-4.9); POTASSIUM 4.9 mmol/L (3.5-5.1); TOTAL PROTEIN, SERUM 6.9 g/dL (6.0-8.3)
[2020-09-11] MEDS: METOCLOPRAMIDE 5 MG TABLET PO SCH ×2 (06:15→12:35)
[2020-09-11] MEDS: PANTOPRAZOLE SODIUM 40 MG TABLET.DR PO SCH (06:15)
[2020-09-11] MEDS: INSULIN LISPRO 100 UNIT/ML 3ML SQ SCH ×5 (06:20→12:34)
--- NOTE | 2020-09-11 07:55 | NUR ---
MD DEBORAH ROMAN VISITED WITH PATIENT. POC DISCUSSED. NOTIFY OF DISCHARGE FOR FURTHER INSULIN ADJUSTMENTS. JESS SPAULDING ONCOMING NURSE AWARE. PATIENT AWARE. WILL CONTINUE TO BE OBSERVED. Addendum: 09/11/20 at 0758 by NERIS BROWNING RN RN Amended: Links added.
[2020-09-11 08:00] VITALS: BP 123/68
[2020-09-11] MEDS: PREGABALIN 25 MG CAP PO SCH (08:20)
[2020-09-11] MEDS: FAMOTIDINE/PF 20 MG/2 ML VIAL IV SCH (08:20)
[2020-09-11] MEDS: Vitamin B Complex/Vit C/Folic Acid PO SCH (08:31)
[2020-09-11] MEDS: SEVELAMER HCL 800 MG TABLET PO SCH ×2 (08:31→12:35)
[2020-09-11] MEDS: CARVEDILOL 25 MG TABLET PO SCH (08:32)
[2020-09-11] MEDS ORDERED: INSULIN GLARGINE 100 UNITS/ML 10 ML VIAL SQ SCH (09:00)
[2020-09-11] MEDS ORDERED: INSU100V3 SQ (10:33)
[2020-09-11] MEDS ORDERED: NPH,100V SQ ×2 (10:33)
[2020-09-11 11:00] VITALS: BP 110/68
--- NOTE | 2020-09-11 13:24 | NUR ---
RD NOTIFICATION PT ADMISSION DUE TO HYPOGLYCEMIA. RD CONSULTED FOR DIET EDUCATION PT SEEN AT BEDSIDE. RD PROVIDED EDUCATIONAL MATERIAL FOR HER FIANCEE AND PROVIDER TO LOOK OVER. PT IS AWARE OF RENAL HD RESTRICTIONS AND DM DIET RECOMMENDATIONS. PT DID ADMIT TO DRINKING A 12OZ COKE ZERO 1 TIME DAILY. PT WAS ENCOURAGED TO LIMIT SODA CONSUMPTION, AND IF SHE DESIRES TO DRINK SODA, TO DRINK VERSIONS WITH NO PHOSPHORUS. PT STATED NEEDING A CAFFEINE FIX EVERY DAY. PT DENIED EATING FAST FOOD DAILY. RD RECOMMENDATION: PT NEEDS REINFORCEMENT TO DIET RECOMMENDATIONS. PT FOLLOWS WITH RENAL DIETITIAN. CONTINUE CURRENT DIET ORDER PT NEEDS ASSISTANCE WITH MEALS. RD WILL CONTINUE TO MONITOR CONTACT DIETITIAN NUTRITIONAL CONCERNS [facility]: A1C 8.6, CREAT 8.0, K 4.9, PHOS 6.5, ALB 2.9, TOT PRO 6.9 Addendum: 09/11/20 at [address] Amended: Links added.
--- NOTE | 2020-09-11 13:26 | NUR ---
RAHUL TEACHING NOTE PT SEEN AT BEDSIDE. RD PROVIDED EDUCATIONAL MATERIAL FOR HER FIANCEE AND PROVIDER TO LOOK OVER. PT IS AWARE OF RENAL HD RESTRICTIONS AND DM DIET RECOMMENDATIONS. PT DID ADMIT TO DRINKING A 12OZ COKE ZERO 1 TIME DAILY. PT WAS ENCOURAGED TO LIMIT SODA CONSUMPTION, AND IF SHE DESIRES TO DRINK SODA, TO DRINK VERSIONS WITH NO PHOSPHORUS. PT STATED NEEDING A CAFFEINE FIX EVERY DAY. PT DENIED EATING FAST FOOD DAILY. PT ENCOURAGED TO USE [employer] SEASONINGS, FOR LOW SODIUM OPTIONS PT IS AWARE OF WHICH FOODS CONTAIN PHOSPHORUS AND POTASSIUM PT IS NON COMPLIANT. NEEDS REINFORCEMENT PT FOLLOWS WITH RENAL DIETITIAN. Addendum: 09/11/20 at [address] Amended: Links added.
--- NOTE | 2020-09-11 15:00 | NUR ---
discharge instruction provided ,along with scripts
[2020-09-12 14:12] LABS: HEPATITIS A ANTIBODY IGM Negative (Negative); HEPATITIS B CORE IGM Negative (Negative); HEPATITIS Bs ANTIGEN SCREEN P Negative (Negative)
== END 2020-09-11 14:00 | disposition home or self-care (01) | DRG 638 ==
LOC: EDH 11:28 → EDHIP 17:05 → 3AH 18:27
PROVIDERS: ADMIT Hospitalist; ATTEND Hospitalist
PROC: 5A1D70Z Performance of Urinary Filtration, Intermittent, Less than 6 Hours Per Day (ICD-10-PCS; principal; 2020-09-10)
DX: E10.649 Type 1 diabetes mellitus with hypoglycemia without coma (principal); I12.0 Hypertensive chronic kidney disease with stage 5 chronic kidney disease or end stage renal disease; R18.8 Other ascites; E46 Unspecified protein-calorie malnutrition; E87.1 Hypo-osmolality and hyponatremia; E87.5 Hyperkalemia; N18.6 End stage renal disease; Z99.2 Dependence on renal dialysis; E10.51 Type 1 diabetes mellitus with diabetic peripheral angiopathy without gangrene; K74.60 Unspecified cirrhosis of liver; E78.5 Hyperlipidemia, unspecified; E10.65 Type 1 diabetes mellitus with hyperglycemia; D64.9 Anemia, unspecified; E10.22 Type 1 diabetes mellitus with diabetic chronic kidney disease; E10.319 Type 1 diabetes mellitus with unspecified diabetic retinopathy without macular edema; H54.8 Legal blindness, as defined in USA; Z79.4 Long term (current) use of insulin; Z82.0 Family history of epilepsy and other diseases of the nervous system; Z82.49 Family history of ischemic heart disease and other diseases of the circulatory system; Z82.5 Family history of asthma and other chronic lower respiratory diseases; Z83.3 Family history of diabetes mellitus; Z89.512 Acquired absence of left leg below knee; Z90.710 Acquired absence of both cervix and uterus; Z91.11 Patient's noncompliance with dietary regimen; Z91.19 Patient's noncompliance with other medical treatment and regimen; Z68.36 Body mass index [BMI] 36.0-36.9, adult; Z88.6 Allergy status to analgesic agent; Z88.5 Allergy status to narcotic agent; Z88.0 Allergy status to penicillin; Z88.2 Allergy status to sulfonamides; Z88.8 Allergy status to other drugs, medicaments and biological substances
CPT/HCPCS: 36415; 80048; 80053; 80074; 82550; 82948; 83036; 84100; 84484; 85025; 85610; 85730; 90935; 93005; G0378; J1815; J7070